=== PATIENT | female | born 1960 | race Caucasian/White ===

== ENCOUNTER 2023-07-15 16:34 | Emergency (ER) | payer OTHER ==
[2023-07-15 16:38] VITALS: BP 134/74; PULSE 58; RESP 16; TEMP 97.9; BMI 25.4
[2023-07-15] MEDS ORDERED: ACETAMINOPHEN 500 MG TABLET (FP) ONE (17:23)
[2023-07-15] MEDS: ACETAMINOPHEN 500 MG TABLET (FP) PO ONE (17:25)
== END 2023-07-15 20:05 | disposition home or self-care (01) ==
LOC: FER 16:34
DX: S16.1XXA Strain of muscle, fascia and tendon at neck level, initial encounter (principal); S50.12XA Contusion of left forearm, initial encounter; M54.2 Cervicalgia; M25.562 Pain in left knee; V49.40XA Driver injured in collision with unspecified motor vehicles in traffic accident, initial encounter; Y92.410 Unspecified street and highway as the place of occurrence of the external cause
CPT/HCPCS: 70450-TC; 72125-TC; 73060-TC-LT-FY; 73070-TC-LT-FY; 73090-TC-LT-FY; 73564-TC-LT-FY; 99284-25